=== PATIENT | female | born 1995 | race American Indian/Alaskan Native ===

== ENCOUNTER 2020-09-30 19:13 | Emergency (ER) | payer MEDICAID ==
[2020-09-30 20:07] VITALS: BP 128/67
[2020-09-30] MEDS ORDERED: ONDANSETRON 4 MG/2 ML INJ IV ONE (20:24)
--- NOTE | 2020-09-30 20:25 | Event Note ---
ED Screening Note Date of service: 09/30/20 Time: 20:21 ED Screening Note: 25-year-old -[place] female presents to the emergency room for nausea and vomiting x2 weeks. Complains of belching regurg. Has been taking Tums baking soda and water on Pepto-Bismol without much relief. She denies any abdominal pain. Last menstrual period was 09/14/2020. This initial assessment/diagnostic orders/clinical plan/treatment(s) is/are subject to change based on patients health status, clinical progression and re- assessment by fellow clinical providers in the ED. Further treatment and workup at subsequent clinical providers discretion. Patient/guardian urged not to elope from the ED as their condition may be serious if not clinically assessed and managed. Initial orders include:
[2020-09-30 20:53] LABS: Basophils % (Auto) 0.7 % (0.0-1.8); Eosinophils # (Auto) 0.1 K/mm3 (0.0-0.4); Eosinophils % (Auto) 2.1 % (0.0-4.3); Hemoglobin 13.6 gm/dl (10.1-14.3); Lymphocytes # (Auto) 2.6 K/mm3 (1.2-5.4); Lymphocytes % (Auto) 39.6 % (13.4-35.0); Mean Corpuscular HGB Conc 34 % (30-34); Mean Corpuscular Volume 87 fl (79-97); Monocytes # (Auto) 0.4 K/mm3 (0.0-0.8); Monocytes % (Auto) 6.1 % (0.0-7.3); Platelet Count 268 K/mm3 (140-440); Red Blood Count 4.58 M/mm3 (3.65-5.03); Red Cell Distribution Width 13.2 % (13.2-15.2)
[2020-09-30 21:15] LABS: Alanine Aminotransferase 11 units/L (7-56); Albumin 4.5 g/dL (3.9-5); Blood Urea Nitrogen 10 mg/dL (7-17); Calcium 8.8 mg/dL (8.4-10.2); Hemolysis Index 5
[2020-09-30 21:16] LABS: BUN/Creatinine Ratio 14
== END 2020-09-30 22:48 | disposition left against medical advice (07) ==
LOC: ED 19:13
DX: R11.2 Nausea with vomiting, unspecified (principal); Z53.21 Procedure and treatment not carried out due to patient leaving prior to being seen by health care provider
CPT/HCPCS: 36415; 80053; 83690; 84702; 85025